=== PATIENT | male | born 1960 | race Caucasian/White ===

== ENCOUNTER 2019-08-26 10:14 | Outpatient (CLI) | payer OTHER ==
[2019-08-26 11:11] LABS: Blood Urea Nitrogen 16 mg/dL (9-20)
--- NOTE | 2019-08-26 12:38 | Cat Scan Report ---
CT CHEST WITH CONTRAST INDICATION: HX OF PULMONARY NODULE. TECHNIQUE: Axial CT images were obtained through the chest after 100 mL Omnipaque 300 IV contrast. Coronal and s agittal reformats were produced. All CT scans at this location are performed using CT dose reduction for ALARA by means of automated exposure control. COMPARISON: None available. FINDINGS: MEDIASTINUM: No mass, lymphadenopathy or other significant abnormality. HEART: No significant abnormality. THORACIC AORTA AND ARTERIES: No significant abnormality. LUNGS: A noncalcified solid nodule is seen along the superior segment of the right lower lobe abuttin g the fissure and measuring 8 mm with smooth margins on image 53 of series 2. No other pulmonary nodu le or mass is seen. No area of consolidation, pneumothorax or pleural effusion is visualized. There i s mild bibasilar atelectasis. ADDITIONAL FINDINGS: None. UPPER ABDOMEN: There is a simple appearing left upper renal pole cyst measuring 2 cm. No additional s ignificant abnormality. SKELETAL SYSTEM: No significant abnormality. IMPRESSION: 8 mm right lower lobe nodule. Correlation with prior CT imaging of the chest would be helpful to dete rmine stability. If no prior studies are available or if this nodule has increased in size since the prior exam, a follow-up CT of the chest without contrast in 6 months is recommended. Signer Name: Nabil Noriega MD Signed: 08/26/2019 12:33 PM Workstation Name: [id number]
== END 2019-08-26 10:15 | disposition home or self-care (01) ==
LOC: CT 10:14
PROVIDERS: ATTEND Family Medicine
DX: J98.11 Atelectasis (principal); R91.1 Solitary pulmonary nodule
CPT/HCPCS: 36415; 71260; 82565; 84520; Q9967